=== PATIENT | female | born 1985 | race Caucasian/White ===

== ENCOUNTER 2025-02-07 14:10 | Emergency (ER) | payer OTHER, SELFPAY ==
[2025-02-07] VITALS (8 sets, daily range): BP systolic 100–153; BP diastolic 55–78; PULSE 98–110; RESP 16–22; TEMP 36.8–39; O2SAT 97–100; BMI 27.7
--- NOTE | ~2025-02-07 | CT_ITS ---
CLINICAL HISTORY: r renal colic CT abdomen and pelvis without contrast Comparison: None provided Findings: The lung bases are clear. Unremarkable gallbladder and solid organs. No urolithiasis. No bowel obstruction, pneumoperitoneum, or pneumatosis. Pelvic contents unremarkable. Normal appendix. No acute fracture. IMPRESSION: No acute findings. This document has been electronically signed by: Carolyn Snyder MD on 02/07/2025 21:45:06
--- NOTE | 2025-02-07 14:32 | ED_ITS ---
HPI - General Adult General Chief complaint: Back Pain/Injury Stated complaint: Acute Pyelonephritis Time Seen by Provider: 02/07/25 16:18 Source: patient Mode of arrival: ambulatory Limitations: no limitations History of Present Illness ED Provider: HPI narrative: Patient otherwise healthy speaks Haitian comes here for dysuria frequency for last 3 days with pain radiating to the right flank with nausea and chills no fever no vomiting feels weak no history of kidney stone no hematuria no vaginal discharge no history of frequent UTI Related Data Previous Rx's ?Medication ?Instructions ?Recorded cefuroxime axetil 500 mg tablet 500 mg PO BID 7 days # 14 tabs 02/07/25 ibuprofen 600 mg tablet 600 mg PO Q6H PRN fever or p ain 02/07/25 #30 tabs Allergies Allergy/AdvReac Type Severity Reaction Status Date / Time No Known Allergies Allergy Verified 02/07/25 14:37 Review of Systems 2 Review of Systems: Yes all other systems are reviewed and are negative PMFSH Social History Social History Smoked in Last 30 Days: No Use of substances other than those prescribed or required for medical reasons: No Advance Directives: No Advance Directives Information Provided: No Do you have a plan to hurt others: No Plan Patient : No Physical Exam ED Vital Signs: Vital Signs - 24 hr 02/07/25 14:30 02/07/25 16:47 02/07/25 17:18 Temperature 98.3 F 98.5 F Pulse Rate 106 H 106 H 109 H Respiratory Rate 18 16 20 Blood Pressure 153/78 H 122/76 113/58 L Pulse Oximetry 97 100 99 Oxygen Delivery Method Room Air Room Air Room Air 02/07/25 18:00 02/07/25 19:19 02/07/25 21:52 Temperature 98.3 F 99.5 F 100.3 F Pulse Rate 105 H 98 Respiratory Rate 16 19 Blood Pressure 105/68 100/55 L Pulse Oximetry 99 97 Oxygen Delivery Method Room Air Room Air BMI result Body Mass Index 27.7 Appearance: Alert. Oriented X3. No acute distress. Eyes: No pallor or icterus ENT: Pharynx normal. Oral Mucosa moist Neck: Normal inspection. Neck supple. CVS: Normal heart rate and rhythm. Pulses normal. Respiratory: No respiratory distress. Equal air entry bilateral, no wheezing/rales/rhonchi Abdomen: Soft and nontender. Bowel sounds are present, no mass palpable, right CVA tenderness Skin: Skin warm and dry. Normal skin color. Normal skin turgor. Extremities: No lower extremity edema. No calf tenderness Neuro: Oriented X 3. No motor deficit. Course Course Course Narrative: This is an RME performed by Kate Hart, INSURANCE SERVICE REPRESENTATIVE: Additional HPI, ROS, PE not included below will be deferred to primary provider. patient is a 39-year-old female who presents emergency department for evaluation she is coming from urgent care. Past 4 days she has been experiencing right-sided back pain that radiates to the abdomen, difficulty with urination, headache. Urinalysis at urgent care was positive for leukocytes protein and hematuria. Today with the associated nausea, vomiting, subjective fever and chills. Exam: CVA tenderness, diffuse tenderness upon palpation to the right lower quadrant, no rebound tenderness at McBurney's point and she is mildly tachycardic 110, afebrile Plan: Serum labs, urinalysis, hCG Medications Administered Discontinued Medications Generic Name Dose Route Start Last Admin Trade Name Freq PRN Reason Stop Dose Admin Ceftriaxone Sodium 1 gm 02/07/25 16:57 02/07/25 17:45 Ceftriaxone Sodium 1 Gm Vial IVPUSH 02/07/25 16:58 1 gm ONCE ONE Administration Sodium Chloride 1,000 mls @ 999 mls/hr 02/07/25 16:57 02/07/25 19:55 Ns IV 02/07/25 17:57 Infused .Q1H1M ONE Infusion Ketorolac Tromethamine 30 mg 02/07/25 16:57 02/07/25 17:45 Ketorolac Tromethamine 30 Mg/Ml Vial IVPUSH 02/07/25 16:58 30 mg ONCE ONE Administration Ondansetron HCl 4 mg 02/07/25 16:57 02/07/25 17:45 Ondansetron Hcl 4 Mg/2 Ml Vial IVPUSH 02/07/25 16:58 4 mg ONCE ONE Administration Medical Decision Making Medical Decision Making [facility] Narrative: Patient with acute pyelonephritis CT scan negative for kidney stone feeling much better after pain medication antibiotic will discharge patient home on cefuroxime Differential Diagnosis Differential Diagnoses: The differential diagnosis associated with the presentation includes UTI/cystitis/pyelonephritis/kidney stone Admission/Observation Consideration of admission/observation: Escalation of care including admission/observation considered Lab Data MDM Lab Attestation statement: I reviewed the patient's lab results. 02/07/25 15:42 02/07/25 15:42 Labs: Lab Results 02/07/25 02/07/25 Range/Units 15:42 16:46 WBC 13.8 H (4.8-10.8) X10*3/uL RBC 4.37 (4.20-5.50) X10*6/uL Hgb 12.7 (12.0-16.0) g/dl Hct 38.7 (37.0-47.0) % MCV 88.6 (80.0-98.0) fL MCH 29.1 (27.0-33.0) pg MCHC 32.8 (31.0-35.0) g/dl RDW 13.5 (11.0-16.0) % Plt Count 270 (160-400) X10*3/uL MPV 9.5 (9.4-12.3) fL Immature Gran % (Auto) 0.5 H (0.0-0.4) % Neut % (Auto) 78.4 H (45-73) % Lymph % (Auto) 10.7 L (20-40) % [place] % (Auto) 10.1 (2-11) % Eos % (Auto) 0.0 (0-4) % Baso % (Auto) 0.3 (0-2) % Lymph # (Auto) 1.5 (1.2-4.9) X10*3/uL [place] # (Auto) 1.4 H (0.1-1.2) X10*3/uL Eos # (Auto) 0.0 (0.0-0.4) X10*3/uL Baso # (Auto) 0.0 (0.0-0.2) X10*3/uL Abs Immat Gran (auto) 0.07 H (0.00-0.03) X10*3/uL Absolute Neuts (auto) 10.8 H (2.0-8.3) x10*3/uL Absolute Nucleated RBC 0.000 (0.0-0.012) X10*3/uL Nucleated RBC % (auto) 0.0 (0.0-0.2) /100WBC Sodium 139 (135-145) mmol/L Potassium 3.6 (3.3-5.1) mmol/L Chloride 106 (96-108) mmol/L Carbon Dioxide 25 (22-29) mmol/L Anion Gap 12 (12-20) BUN 9 (9-16) mg/dL Creatinine 0.69 (0.5-1.4) mg/dL Estim Creat Clear Calc 121.7 Estimated GFR > 60 Random Glucose 111 (60-115) mg/dL Calcium 9.1 (8.4-10.2) mg/dL Total Bilirubin 1.4 H (0.0-1.0) mg/dL AST 18 (5-31) U/L ALT 25 (0-31) U/L Alkaline Phosphatase 58 (39-117) U/L C-Reactive Protein 7.89 H (< or = 0.50) mg/dL Total Protein 7.5 (6.5-8.0) g/dL Albumin 4.3 (3.5-5.0) g/dL Lipase 23 (8-78) U/L Beta HCG, Quant < 2 mIU/mL Urine Color Yellow Urine Appearance Clear Urine pH 6.0 (5.0-9.0) Ur Specific [place] <= 1.005 (1.005-1.025) Urine Protein Trace (Neg-Trace) mg/dL Urine Glucose (UA) Negative (Negative) mg/dL Urine Ketones Negative (Negative) mg/dL Urine Blood Moderate (2+) H (Negative) Urine Nitrite Negative (Negative) Ur Leukocyte Esterase Large (3+) H (Negative) Urine RBC 3-5 H (0-2) /HPF Urine WBC >50 H (0-5) /HPF Ur Squamous Epith Cells 0-2 (0-2) /HPF Urine Bacteria None Seen (None Seen) Hyaline Casts 0-2 (0-2) /LPF Radiology Impression Discussion of test interpretation with radiology: I have reviewed the radiologist's reading. Radiologist Impression: No acute Discharge Plan Discharge Clinical Impression: Pyelonephritis Patient Disposition: Home, Self-Care Instructions: Kidney Infection (ED) Additional Instructions: Drink plenty of fluids Antibiotic as prescribed Follow with your PCP if not better Your CT scan of the abdomen was negative for kidney stone Prescriptions: New ibuprofen 600 mg tablet 600 mg PO Q6H PRN (Reason: fever or pain) Qty: 30 0RF cefuroxime axetil 500 mg tablet 500 mg PO BID 7 Days Qty: 14 0RF Print Language: Haitian
[2025-02-07 15:45] LABS: MANUAL DIFF FLAG NO
[2025-02-07 15:46] LABS: Hematocrit 38.7 % (37.0-47.0); Hemoglobin 12.7 g/dl (12.0-16.0); Imm Gran Abs Auto 0.07 X10*3/uL (0.00-0.03); Imm Gran Pct Auto 0.5 % (0.0-0.4); Lymphocytes Absolute Auto 1.5 X10*3/uL (1.2-4.9); Mean Corpuscular HGB Conc 32.8 g/dl (31.0-35.0); Mean Corpuscular Hemoglobin 29.1 pg (27.0-33.0); Mean Corpuscular Volume 88.6 fL (80.0-98.0); NRBC Abs Auto 0.000 X10*3/uL (0.0-0.012); NRBC Pct Auto 0.0 /100WBC (0.0-0.2); Platelet Count 270 X10*3/uL (160-400); Red Blood Count 4.37 X10*6/uL (4.20-5.50); White Blood Count 13.8 X10*3/uL (4.8-10.8)
[2025-02-07 16:08] LABS: Alanine Aminotransferase 25 U/L (0-31); Albumin Level 4.3 g/dL (3.5-5.0); Alkaline Phosphatase 58 U/L (39-117); Anion Gap 12 (12-20); Aspartate Amino Transferase 18 U/L (5-31); Blood Urea Nitrogen 9 mg/dL (9-16); Calcium 9.1 mg/dL (8.4-10.2); Carbon Dioxide 25 mmol/L (22-29); Chloride 106 mmol/L (96-108); Creatinine Clr Calc Pharmacy 121.7; Estimated Glomerular Filt Rate > 60; Lipase 23 U/L (8-78); Potassium 3.6 mmol/L (3.3-5.1); Sodium 139 mmol/L (135-145); Total Protein 7.5 g/dL (6.5-8.0)
[2025-02-07 16:54] LABS: Appearance Urine Clear; Glucose Urine UA Negative (Negative); PH 6.0 (5.0-9.0); Specific Gravity - Urine <= 1.005 (1.005-1.025); UMIC TRIGGER UACC YES
[2025-02-07 17:10] LABS: UACC Culture Trigger YES
--- NOTE | 2025-02-07 18:14 | PC.NURSE ---
iv line in the right ac infiltrated in the middle of abx administration, at bedside attempting to obtain and iv via ultra sound-first attempt failed with the ultra sound
--- NOTE | 2025-02-07 19:29 | PC.NURSE ---
assumed acre of pt @1900, report recieved from [facility] KIMBALL, no acute distress noted at this time
== END 2025-02-07 23:28 | disposition home or self-care (01) ==
PROVIDERS: Nurse Practitioner Family; Emergency Provider Internal Medicine
DX: N10 Acute pyelonephritis (principal); R30.0 Dysuria; R35.0 Frequency of micturition; R10.2 Pelvic and perineal pain; R11.2 Nausea with vomiting, unspecified; Z79.899 Other long term (current) drug therapy
CPT/HCPCS: 36415; 74176; 80053; 81001; 83690; 84702; 85025; 86140; 87086; 87088; 87186; 96361; 96374; 96375; 99284; 99285; J0696; J1885; J2405

== ENCOUNTER → 2025-02-07 18:13 | Outpatient (BNV) | payer OTHER, SELFPAY | PROVIDERS: Emergency Provider Internal Medicine; Visit Provider Student in an Organized Health Care Education/Training Program | DX: N10 Acute pyelonephritis (principal) | CPT/HCPCS: 74176 ==